=== PATIENT | male | born 1955 | race Caucasian/White ===

== ENCOUNTER 2017-02-27 20:33 | Emergency (ER) | payer BC ==
[~2017-02-27 20:33] MED LIST: AVAPRO300 MG MT; BENTYL20 MG PO; CIPRO500 MG PO; FLAGYL500 MG PO; IBUPROFEN600 MG PO; LIPITOR TAB 2020 MG PO; LOPRESSOR 25 MG25 MG PO; NORVASC 5 MG TAB5 MG PO; PRILOSEC OTC20 MG PO
== END 2017-02-27 22:52 | disposition home or self-care (01) ==
LOC: ER1 20:33
DX: T81.4XXA Infection following a procedure, initial encounter (principal); L08.9 Local infection of the skin and subcutaneous tissue, unspecified; I10 Essential (primary) hypertension; Z87.891 Personal history of nicotine dependence; Z88.1 Allergy status to other antibiotic agents; Z85.828 Personal history of other malignant neoplasm of skin
CPT/HCPCS: 87070; 87205; 96372; 99283

== ENCOUNTER → 2020-11-12 | Outpatient (CLI) | payer OTHER ==
[~2020-11-12] MED LIST changes: +LIPITOR40 MG PO; +MICARDIS80 MG PO
== END ==
LOC: RAD 12:14
DX: M54.16 Radiculopathy, lumbar region (principal)
CPT/HCPCS: 72110

== ENCOUNTER → 2020-11-27 | Outpatient (CLI) | payer OTHER | LOC: KOH-I 14:28 | DX: M51.16 Intervertebral disc disorders with radiculopathy, lumbar region (principal); M48.061 Spinal stenosis, lumbar region without neurogenic claudication | CPT/HCPCS: 72148 ==

== ENCOUNTER → 2021-03-05 | Outpatient (CLI) | payer OTHER | LOC: KOH-I 11:15 | DX: Z87.891 Personal history of nicotine dependence (principal); R91.8 Other nonspecific abnormal finding of lung field | CPT/HCPCS: 71271 ==

== ENCOUNTER → 2021-03-15 | Day surgery (SDC) | payer OTHER | END | disposition home or self-care (01) | LOC: OR 07:17 | DX: K31.7 Polyp of stomach and duodenum (principal); K29.50 Unspecified chronic gastritis without bleeding; K44.9 Diaphragmatic hernia without obstruction or gangrene; K21.9 Gastro-esophageal reflux disease without esophagitis; F41.9 Anxiety disorder, unspecified; I10 Essential (primary) hypertension; N40.1 Benign prostatic hyperplasia with lower urinary tract symptoms; N13.8 Other obstructive and reflux uropathy; I65.23 Occlusion and stenosis of bilateral carotid arteries; J44.9 Chronic obstructive pulmonary disease, unspecified; F32.9 Major depressive disorder, single episode, unspecified; E78.5 Hyperlipidemia, unspecified; E03.9 Hypothyroidism, unspecified; E55.9 Vitamin D deficiency, unspecified; Z87.891 Personal history of nicotine dependence; Z79.899 Other long term (current) drug therapy | CPT/HCPCS: J2001; J2704; J7120 ==

== ENCOUNTER → 2022-03-30 | Outpatient (CLI) | payer MEDICARE, OTHER | LOC: KOH-I 11:00 | DX: Z87.891 Personal history of nicotine dependence (principal) | CPT/HCPCS: 71271 ==